=== PATIENT | female | born 1970 | race Caucasian/White ===

== ENCOUNTER 2017-01-09 20:37 | Observation (INO) | payer MEDICARE ==
[~2017-01-09] VITALS: Ht 152.4 cm; Wt 71.0 kg
[~2017-01-09 20:37] MED LIST: CLOB20TA PO; FLUO20CA19 PO; LEVE500T53 PO; LEVO112T4 PO; LEVO88TA4 PO; VIT D
[2017-01-09] MEDS ORDERED: DIVALPROEX 250 MG TAB.ER.24H PO ONE (21:30)
[2017-01-09 21:54] LABS: HEMOGLOBIN 15.1 g/dL (11.7-16.4)
[2017-01-09 22:03] LABS: BLOOD UREA NITROGEN 11 mg/dL (7-18)
[2017-01-09] MEDS ORDERED: DIVA250T4 PO (22:27)
[2017-01-09] MEDS ORDERED: LEVETIRACETAM 500 MG TABLET PO SCH (22:30)
[2017-01-09] MEDS ORDERED: ONDANSETRON ODT 4 MG PO PRN (22:30)
[2017-01-09] MEDS ORDERED: POLYETHYLENE GLYCOL 17 GM PACKET PO PRN (22:30)
[2017-01-09] MEDS ORDERED: DIVALPROEX 250 MG TABLET.DR PO SCH (22:30)
[2017-01-09] MEDS ORDERED: BISACODYL 10 MG SUPP PR PRN (22:30)
[2017-01-09] MEDS ORDERED: ACETAMINOPHEN 325 MG TABLET PO PRN (22:30)
[2017-01-09 22:43] VITALS: BP 138/81
[2017-01-10] MEDS ORDERED: FLUOXETINE 20 MG CAPSULE PO SCH (09:00)
[2017-01-10] MEDS ORDERED: SENNA/DOCUSATE TABLET PO SCH (09:00)
== END 2017-01-10 00:49 ==
LOC: ED 22:08 → EDIP 22:09 → ED 22:29 → 3E 22:39
DX: R45.851 Suicidal ideations (principal); F32.9 Major depressive disorder, single episode, unspecified; E03.9 Hypothyroidism, unspecified; G40.909 Epilepsy, unspecified, not intractable, without status epilepticus; Z91.5 Personal history of self-harm
CPT/HCPCS: 36415; 80048; 80164; 82040; 84439; 84443; 84703; 85025; 99285; G0378

== ENCOUNTER 2017-03-20 19:30 | Emergency (ER) | payer MEDICARE, MEDICAID ==
[~2017-03-20] VITALS: Ht 152.4 cm; Wt 70.5 kg
[~2017-03-20 19:30] MED LIST changes: +DIVA250T4 PO
[2017-03-20 19:45] VITALS: BP 147/90
== END 2017-03-20 21:37 | disposition home or self-care (01) ==
LOC: ED 21:00
DX: S93.491A Sprain of other ligament of right ankle, initial encounter (principal); S93.611A Sprain of tarsal ligament of right foot, initial encounter; W18.09XA Striking against other object with subsequent fall, initial encounter; Y93.89 Activity, other specified; Y92.009 Unspecified place in unspecified non-institutional (private) residence as the place of occurrence of the external cause; Y99.9 Unspecified external cause status
CPT/HCPCS: 99284

== ENCOUNTER 2017-04-19 01:43 | Emergency (ER) | payer MEDICARE, MEDICAID ==
[~2017-04-19] VITALS: Ht 152.4 cm; Wt 68.0 kg
[2017-04-19] MEDS ORDERED: MECLIZINE CHEWABLE 25 MG TAB ONE (02:16)
[2017-04-19] MEDS ORDERED: SODIUM CHLORIDE FLUSH 10ML SYR IVF ONE (02:30)
[2017-04-19] MEDS ORDERED: SODIUM CHLORIDE 0.9% 1,000ML IVBOLUS ONE (02:30)
[2017-04-19] MEDS ORDERED: MECLIZINE CHEWABLE 25 MG TAB PO ONE (02:30)
[2017-04-19 02:39] LABS: BLOOD UREA NITROGEN 9 mg/dL (7-18)
[2017-04-19] MEDS ORDERED: LEVO100T PO (02:57)
[2017-04-19 03:58] VITALS: BP 142/82
== END 2017-04-19 04:01 | disposition home or self-care (01) ==
LOC: ED 02:52
DX: R55 Syncope and collapse (principal); R42 Dizziness and giddiness
CPT/HCPCS: 36415; 71010; 80048; 82040; 84439; 84443; 85025; 93005; 96360; 99285; J7030

== ENCOUNTER 2017-05-15 15:55 | Emergency (ER) | payer MEDICARE, MEDICAID ==
[~2017-05-15] VITALS: Ht 152.4 cm; Wt 70.4 kg
[~2017-05-15 15:55] MED LIST changes: +LEVO100T PO
[2017-05-15] MEDS ORDERED: SODIUM CHLORIDE FLUSH 10ML SYR IVF ONE (16:00)
[2017-05-15] MEDS ORDERED: SODIUM CHLORIDE 0.9% 1,000ML IVBOLUS ONE (16:00)
[2017-05-15 16:31] LABS: ASPARTATE AMINO TRANSFERASE 15 U/L (15-37); BLOOD UREA NITROGEN 7 mg/dL (7-18)
[2017-05-15 16:50] LABS: PATH.CAST-FLAG NOT PRESENT; SPERM-FLAG NOT PRESENT; SRC-FLAG NOT PRESENT; XTAL-FLAG NOT PRESENT; YLC-FLAG NOT PRESENT
[2017-05-15] MEDS ORDERED: ONDANSETRON 2MG/ML, 2ML IVPush ONE (18:30)
[2017-05-15] MEDS ORDERED: MORPHINE SULFATE 4 MG/ML, 1ML IVPush ONE (18:30)
[2017-05-15] MEDS ORDERED: MORPHINE SULFATE 4 MG/ML, 1ML ONE (18:38)
[2017-05-15] MEDS ORDERED: ONDANSETRON 2MG/ML, 2ML ONE (18:38)
[2017-05-15] MEDS ORDERED: OMNIPAQUE 350 MG/ML, 100ML BOTTLE ONE (18:54)
[2017-05-15 19:12] VITALS: BP 130/71
[2017-05-15] MEDS ORDERED: DIPHENHYDRAMINE 50 MG/ML, 1ML ONE (19:29)
[2017-05-15] MEDS ORDERED: DIPHENHYDRAMINE 50 MG/ML, 1ML IVPush ONE (19:30)
== END 2017-05-15 19:54 | disposition home or self-care (01) ==
LOC: ED 19:00
DX: R10.33 Periumbilical pain (principal)
CPT/HCPCS: 36415; 74177; 80053; 81001; 83690; 84703; 85025; 87086; 96361; 96374; 96375; 99285; J1200; J2405; J7030; Q9967

== ENCOUNTER 2017-08-14 17:41 | Emergency (ER) | payer MEDICARE, MEDICAID ==
[~2017-08-14] VITALS: Ht 152.4 cm; Wt 70.0 kg
[2017-08-14] MEDS ORDERED: DIVA250T4 PO (18:00)
[2017-08-14 18:24] LABS: HEMATOCRIT 44.6 % (34.6-47.8); HEMOGLOBIN 15.2 g/dL (11.7-16.4); WHITE BLOOD COUNT 6.4 x10^3/uL (3.4-10)
[2017-08-14] MEDS ORDERED: SODIUM CHLORIDE 0.9% 1,000ML IVBOLUS ONE (18:30)
[2017-08-14] MEDS ORDERED: ONDANSETRON 2MG/ML, 2ML IVPush ONE (18:30)
[2017-08-14] MEDS ORDERED: HYDROmorphone 1 MG/ML, 1ML IVPush PRN (18:30)
[2017-08-14] MEDS ORDERED: HYDROmorphone 1 MG/ML, 1ML ONE (18:31)
[2017-08-14] MEDS ORDERED: ONDANSETRON 2MG/ML, 2ML ONE (18:31)
[2017-08-14 18:35] LABS: ASPARTATE AMINO TRANSFERASE 21 U/L (15-37); BLOOD UREA NITROGEN 8 mg/dL (7-18)
[2017-08-14 20:46] VITALS: BP 124/82
== END 2017-08-14 21:06 | disposition home or self-care (01) ==
LOC: ED 21:00
DX: S39.012A Strain of muscle, fascia and tendon of lower back, initial encounter (principal); E03.9 Hypothyroidism, unspecified; F32.9 Major depressive disorder, single episode, unspecified; X58.XXXA Exposure to other specified factors, initial encounter; Y93.89 Activity, other specified; Y92.89 Other specified places as the place of occurrence of the external cause; Y99.8 Other external cause status; Z88.0 Allergy status to penicillin
CPT/HCPCS: 36415; 74176; 80053; 81003; 83690; 85025; 96361; 96374; 96375; 99285; J1170; J2405; J7030

== ENCOUNTER 2017-08-14 21:48 | Emergency (ER) | payer MEDICARE, MEDICAID ==
[~2017-08-14] VITALS: Ht 152.4 cm; Wt 72.2 kg
[2017-08-14] MEDS ORDERED: ONDANSETRON ODT 4 MG ONE (22:12)
[2017-08-14] MEDS ORDERED: ONDANSETRON ODT 4 MG PO ONE (22:30)
[2017-08-14] MEDS ORDERED: PROMETHAZINE 25 MG/ML, 1ML ONE (23:06)
[2017-08-14] MEDS ORDERED: PROMETHAZINE 25 MG/ML, 1ML IM ONE (23:30)
[2017-08-14 23:42] VITALS: BP 150/88
== END 2017-08-14 23:51 | disposition home or self-care (01) ==
LOC: ED 23:45
DX: R11.2 Nausea with vomiting, unspecified (principal); G40.909 Epilepsy, unspecified, not intractable, without status epilepticus; F32.9 Major depressive disorder, single episode, unspecified
CPT/HCPCS: 96372; 99283; J2550; Q0162

== ENCOUNTER 2017-08-28 15:01 | Emergency (ER) | payer MEDICARE, MEDICAID ==
[~2017-08-28] VITALS: Ht 152.4 cm; Wt 70.0 kg
[2017-08-28] MEDS ORDERED: CLON0.5T PO (15:15)
[2017-08-28 16:04] VITALS: BP 125/82
[2017-08-31] MEDS ORDERED: LEVE500V12 PO (04:35)
== END 2017-08-28 16:24 | disposition home or self-care (01) ==
LOC: ED 15:23
DX: S80.01XA Contusion of right knee, initial encounter (principal); E03.9 Hypothyroidism, unspecified; F32.9 Major depressive disorder, single episode, unspecified; G40.909 Epilepsy, unspecified, not intractable, without status epilepticus; W19.XXXA Unspecified fall, initial encounter; Y93.89 Activity, other specified; Y92.488 Other paved roadways as the place of occurrence of the external cause; Y99.8 Other external cause status
CPT/HCPCS: 99284

== ENCOUNTER 2018-01-07 19:59 | Emergency (ER) | payer MEDICARE, MEDICAID ==
[~2018-01-07] VITALS: Ht 152.4 cm; Wt 69.4 kg
[~2018-01-07 19:59] MED LIST changes: +CLON0.5T PO; +LEVE500V12 PO
[2018-01-07 20:01] VITALS: BP 137/90
== END 2018-01-07 21:35 | disposition home or self-care (01) ==
LOC: ED 21:29
DX: J20.8 Acute bronchitis due to other specified organisms (principal); B97.89 Other viral agents as the cause of diseases classified elsewhere; S80.12XA Contusion of left lower leg, initial encounter; S80.11XA Contusion of right lower leg, initial encounter; E03.9 Hypothyroidism, unspecified; Y04.8XXA Assault by other bodily force, initial encounter; Y93.89 Activity, other specified; Y92.89 Other specified places as the place of occurrence of the external cause; Y99.9 Unspecified external cause status
CPT/HCPCS: 71046; 99284

== ENCOUNTER 2018-02-10 13:56 | Emergency (ER) | payer MEDICARE, MEDICAID ==
[~2018-02-10] VITALS: Ht 152.4 cm; Wt 67.0 kg
[2018-02-10 16:24] LABS: MICROSCOPIC AUTO
[2018-02-10 16:25] LABS: CULTURE INDICATED? YES
[2018-02-10 16:30] VITALS: BP 130/81
[2018-02-10 16:33] LABS: HCG UR SG 1.012 (1.003-1.030)
[2018-02-10 16:33] LABS: BASOPHILS # (AUTO) 0.02 x10^3/uL (0-0.1); BASOPHILS % (AUTO) 0 % (0-1); EOSINOPHILS # (AUTO) 0.05 x10^3/uL (0-0.4); EOSINOPHILS % (AUTO) 1 % (1-7); LYMPHOCYTES # (AUTO) 1.41 x10^3/uL (1-3.4); LYMPHOCYTES % (AUTO) 19 % (22-44); MD NO; MEAN CORPUSCULAR HEMOGLOBIN 30.8 pg (27.0-34.8); MEAN CORPUSCULAR HGB CONC 33.7 g/dL (32.4-35.8); MEAN CORPUSCULAR VOLUME 91.4 fL (80-100); MEAN PLATELET VOLUME 11.7 fL (7.4-10.4); MONOCYTES # (AUTO) 0.42 x10^3/uL (0.2-0.8); MONOCYTES % (AUTO) 6 % (2-9); NEUTROPHILS # (AUTO) 5.66 x10^3/uL (1.8-6.8); NEUTROPHILS % (AUTO) 75 % (42-75); PLATELET COUNT 157 x10^3/uL (130-400); RED BLOOD COUNT 5.06 x10^6/uL (3.82-5.3); RED CELL DISTRIBUTION WIDTH 13.1 % (9.6-15.2)
[2018-02-10 16:47] LABS: ANION GAP 8 mmol/L (5-15); CHLORIDE 107 mmol/L (98-107); CREATININE 0.72 mg/dL (0.55-1.02)
== END 2018-02-10 18:38 | disposition home or self-care (01) ==
LOC: ED 18:32
DX: T74.21XA Adult sexual abuse, confirmed, initial encounter (principal); E03.9 Hypothyroidism, unspecified; E55.9 Vitamin D deficiency, unspecified; F32.9 Major depressive disorder, single episode, unspecified; G40.909 Epilepsy, unspecified, not intractable, without status epilepticus
CPT/HCPCS: 36415; 80048; 81001; 81025; 85025; 87086; 87147; 87491; 87591; 99284

== ENCOUNTER 2018-03-04 18:00 | Emergency (ER) | payer MEDICARE, MEDICAID ==
[~2018-03-04] VITALS: Ht 152.4 cm; Wt 68.4 kg
[2018-03-04 18:14] VITALS: BP 136/93
== END 2018-03-04 19:06 | disposition home or self-care (01) ==
LOC: ED 19:00
DX: H93.11 Tinnitus, right ear (principal); E03.9 Hypothyroidism, unspecified; G40.909 Epilepsy, unspecified, not intractable, without status epilepticus; Z77.122 Contact with and (suspected) exposure to noise
CPT/HCPCS: 99281

== ENCOUNTER 2018-04-26 17:07 | Emergency (ER) | payer MEDICARE, MEDICAID ==
[2018-04-26 18:08] LABS: BASOPHILS # (AUTO) 0.01 x10^3/uL (0-0.1); BASOPHILS % (AUTO) 0 % (0-1); EOSINOPHILS # (AUTO) 0.04 x10^3/uL (0-0.4); EOSINOPHILS % (AUTO) 1 % (1-7); LYMPHOCYTES # (AUTO) 1.04 x10^3/uL (1-3.4); LYMPHOCYTES % (AUTO) 13 % (22-44); MD NO; MEAN CORPUSCULAR HEMOGLOBIN 30.9 pg (27.0-34.8); MEAN CORPUSCULAR HGB CONC 33.7 g/dL (32.4-35.8); MEAN CORPUSCULAR VOLUME 91.6 fL (80-100); MEAN PLATELET VOLUME 12.3 fL (7.4-10.4); MONOCYTES # (AUTO) 0.73 x10^3/uL (0.2-0.8); MONOCYTES % (AUTO) 9 % (2-9); NEUTROPHILS # (AUTO) 6.09 x10^3/uL (1.8-6.8); NEUTROPHILS % (AUTO) 77 % (42-75); PLATELET COUNT 138 x10^3/uL (130-400); RED BLOOD COUNT 4.81 x10^6/uL (3.82-5.3); RED CELL DISTRIBUTION WIDTH 13.6 % (9.6-15.2)
[2018-04-26 18:20] LABS: ALANINE AMINOTRANSFERASE 25 U/L (12-78); ALBUMIN 3.6 g/dL (3.4-5.0); ANION GAP 8 mmol/L (5-15); CALCIUM 8.6 mg/dL (8.5-10.1); CHLORIDE 109 mmol/L (98-107); CREATININE 0.69 mg/dL (0.55-1.02)
[2018-04-26 18:21] LABS: SALICYLATE LEVEL < 1.7 mg/dL (2.8-20.0)
[2018-04-26 18:25] LABS: ALKALINE PHOSPHATASE 52 U/L (45-117); BILIRUBIN,TOTAL 0.2 mg/dL (0.2-1.0)
[2018-04-26 18:31] LABS: ACETAMINOPHEN < 2 mcg/mL (10-30)
[2018-04-26 20:00] LABS: AMPHETAMINE SCREEN, URINE Negative (Negative); BARBITURATE SCREEN, URINE Negative (Negative); BENZODIAZEPINE SCREEN, URINE Negative (Negative); CANNABINOID SCREEN, URINE Negative (Negative); COCAINE SCREEN, URINE Negative (Negative); METHADONE SCREEN, URINE Negative (Negative); OPIATE SCREEN, URINE Negative (Negative)
[2018-04-26] MEDS ORDERED: LORazepam 2 MG/ML, 1ML ONE (21:07)
[2018-04-26] MEDS ORDERED: LORazepam 1MG TABLET ONE (22:41)
[2018-04-26] MEDS ORDERED: LORazepam 1MG TABLET PO ONE (23:00)
[2018-04-27 01:50] VITALS: BP 147/90
== END 2018-04-27 01:52 | disposition home or self-care (01) ==
LOC: ED 19:28
DX: F41.1 Generalized anxiety disorder (principal); Z79.899 Other long term (current) drug therapy
CPT/HCPCS: 36415; 80053; 80307; 80329; 84703; 85025; 99284; G0480

== ENCOUNTER → 2018-05-22 | Outpatient (CLI) | payer MEDICARE, MEDICAID ==
[2018-05-22 12:15] LABS: BASOPHILS # (AUTO) 0.03 x10^3/uL (0-0.1); BASOPHILS % (AUTO) 1 % (0-1); EOSINOPHILS # (AUTO) 0.11 x10^3/uL (0-0.4); EOSINOPHILS % (AUTO) 2 % (1-7); LYMPHOCYTES # (AUTO) 1.17 x10^3/uL (1-3.4); LYMPHOCYTES % (AUTO) 18 % (22-44); MD NO; MEAN CORPUSCULAR HGB CONC 34.1 g/dL (32.4-35.8); MEAN PLATELET VOLUME 11.4 fL (7.4-10.4); MONOCYTES # (AUTO) 0.47 x10^3/uL (0.2-0.8); MONOCYTES % (AUTO) 8 % (2-9); NEUTROPHILS # (AUTO) 4.54 x10^3/uL (1.8-6.8); NEUTROPHILS % (AUTO) 72 % (42-75); PLATELET COUNT 132 x10^3/uL (130-400); RED BLOOD COUNT 4.99 x10^6/uL (3.82-5.3); RED CELL DISTRIBUTION WIDTH 13.9 % (9.6-15.2)
[2018-05-22 12:26] LABS: CHLORIDE 109 mmol/L (98-107)
[2018-05-22 12:46] LABS: ALANINE AMINOTRANSFERASE 48 U/L (12-78); ALBUMIN 3.7 g/dL (3.4-5.0); ALKALINE PHOSPHATASE 49 U/L (45-117); ANION GAP 7 mmol/L (5-15); BILIRUBIN,TOTAL 0.5 mg/dL (0.2-1.0); CALCIUM 8.5 mg/dL (8.5-10.1); CHOLESTEROL, TOTAL 189 mg/dL (140-239); CREATININE 0.71 mg/dL (0.55-1.02); HDL CHOL % 25 % (28-40); HDL CHOLESTEROL (DIRECT) 47 mg/dL (40-60); LDL CHOLESTEROL,CALCULATED 119 mg/dL (54-169); LDL/HDL RATIO 2.5 (0.5-3.0); TOTAL PROTEIN 7.5 g/dL (6.4-8.2); TRIGLYCERIDES 115 mg/dL (50-200); VLDL CHOLESTEROL 23 mg/dL (0-25)
[2018-05-22 13:07] LABS: FREE T4 (FREE THYROXINE) 1.31 ng/dL (0.76-1.46)
== END | disposition home or self-care (01) ==
LOC: LAB 11:43
PROVIDERS: ATTEND Physician Assistant Medical
DX: E03.9 Hypothyroidism, unspecified (principal); F32.9 Major depressive disorder, single episode, unspecified
CPT/HCPCS: 36415; 80053; 80061; 84439; 84443; 85025

== ENCOUNTER 2018-05-23 14:58 | Emergency (ER) | payer MEDICARE, MEDICAID ==
[~2018-05-23] VITALS: Ht 152.4 cm; Wt 65.8 kg
[2018-05-23 15:03] VITALS: BP 129/83
== END 2018-05-23 15:47 | disposition home or self-care (01) ==
LOC: ED 15:35
DX: H66.001 Acute suppurative otitis media without spontaneous rupture of ear drum, right ear (principal); E03.9 Hypothyroidism, unspecified
CPT/HCPCS: 99283

== ENCOUNTER 2018-06-26 15:17 | Emergency (ER) | payer MEDICARE, MEDICAID ==
[~2018-06-26] VITALS: Ht 152.4 cm; Wt 65.2 kg
[~2018-06-26 15:17] MED LIST changes: -LEVE500V12 PO; +[UNRECOGNIZED DRUG - CODE] PO
[2018-06-26 15:20] VITALS: BP 131/85
[2018-06-26] MEDS ORDERED: DEXAMETHASONE 4 MG/ML, 5ML ONE (15:40)
[2018-06-26] MEDS ORDERED: DEXAMETHASONE 4 MG/ML, 1ML PO ONE (16:00)
== END 2018-06-26 15:49 | disposition home or self-care (01) ==
LOC: ED 15:43
DX: K12.2 Cellulitis and abscess of mouth (principal); Z86.39 Personal history of other endocrine, nutritional and metabolic disease
CPT/HCPCS: 99283; J1100

== ENCOUNTER 2018-07-09 20:03 | Emergency (ER) | payer MEDICARE, MEDICAID ==
[~2018-07-09] VITALS: Ht 152.4 cm; Wt 61.0 kg
[2018-07-09] MEDS ORDERED: AMOX1TAB64 PO (20:34)
[2018-07-09] MEDS ORDERED: LEVE500T53 PO ×2 (20:34)
[2018-07-09] MEDS ORDERED: LORazepam 1MG TABLET ONE (21:17)
[2018-07-09] MEDS ORDERED: LORazepam 2 MG/ML, 1ML IVPush ONE (21:30)
[2018-07-09] MEDS ORDERED: SODIUM CHLORIDE FLUSH 10ML SYR IVF ONE (21:30)
[2018-07-09] MEDS ORDERED: SODIUM CHLORIDE 0.9% 1,000ML IVBOLUS ONE (21:30)
[2018-07-09] MEDS ORDERED: LORazepam 2 MG/ML, 1ML ONE (21:32)
[2018-07-09] MEDS ORDERED: LORazepam 1MG TABLET PO ONE (22:00)
[2018-07-09] MEDS ORDERED: LEVETIRACETAM 1,000 MG in SODIUM CHLORIDE 0.9% 100 ML IV ONE (22:00)
[2018-07-09 22:40] LABS: ALBUMIN 3.4 g/dL (3.4-5.0); ANION GAP 6 mmol/L (5-15); BASOPHILS # (AUTO) 0.02 x10^3/uL (0-0.1); BASOPHILS % (AUTO) 0 % (0-1); CALCIUM 8.5 mg/dL (8.5-10.1); CHLORIDE 111 mmol/L (98-107); EOSINOPHILS # (AUTO) 0.14 x10^3/uL (0-0.4); EOSINOPHILS % (AUTO) 2 % (1-7); LYMPHOCYTES # (AUTO) 1.55 x10^3/uL (1-3.4); LYMPHOCYTES % (AUTO) 17 % (22-44); MD NO; MEAN CORPUSCULAR HEMOGLOBIN 31.3 pg (27.0-34.8); MEAN CORPUSCULAR VOLUME 91.9 fL (80-100); MEAN PLATELET VOLUME 11.4 fL (7.4-10.4); MONOCYTES # (AUTO) 0.61 x10^3/uL (0.2-0.8); MONOCYTES % (AUTO) 7 % (2-9); NEUTROPHILS # (AUTO) 7.09 x10^3/uL (1.8-6.8); NEUTROPHILS % (AUTO) 75 % (42-75); PLATELET COUNT 171 x10^3/uL (130-400); RED BLOOD COUNT 4.87 x10^6/uL (3.82-5.3); RED CELL DISTRIBUTION WIDTH 13.9 % (9.6-15.2)
[2018-07-09 22:44] LABS: ALANINE AMINOTRANSFERASE 206 U/L (12-78); ALKALINE PHOSPHATASE 57 U/L (45-117); BILIRUBIN,TOTAL 0.3 mg/dL (0.2-1.0); CREATININE 0.68 mg/dL (0.55-1.02)
[2018-07-09 23:51] VITALS: BP 144/97
== END 2018-07-09 23:54 | disposition home or self-care (01) ==
LOC: ED 22:20
DX: G40.419 Other generalized epilepsy and epileptic syndromes, intractable, without status epilepticus (principal); E03.9 Hypothyroidism, unspecified; F32.9 Major depressive disorder, single episode, unspecified; F41.1 Generalized anxiety disorder
CPT/HCPCS: 36415; 71045; 80053; 80307; 85025; 93005; 96365; 96375; 99285; J1953; J2060; J7030

== ENCOUNTER 2018-07-31 17:57 | Emergency (ER) | payer MEDICARE, MEDICAID ==
[~2018-07-31] VITALS: Ht 152.4 cm; Wt 97.4 kg
[~2018-07-31 17:57] MED LIST changes: +AMOX1TAB64 PO
[2018-07-31] MEDS ORDERED: MAALOX/HYOSCYAMINE/LIDOCAINE 45 ML BTL PO ONE (19:00)
[2018-07-31] MEDS ORDERED: FAMOTIDINE 20 MG TABLET PO ONE (19:00)
[2018-07-31] MEDS ORDERED: FAMOTIDINE 20 MG TABLET ONE (19:05)
[2018-07-31] MEDS ORDERED: MAALOX/HYOSCYAMINE/LIDOCAINE 45 ML BTL ONE (19:05)
[2018-07-31 19:22] LABS: CULTURE INDICATED? YES; MICROSCOPIC INDICATED
[2018-07-31 19:23] LABS: BASOPHILS # (AUTO) 0.02 x10^3/uL (0-0.1); BASOPHILS % (AUTO) 0 % (0-1); EOSINOPHILS # (AUTO) 0.12 x10^3/uL (0-0.4); EOSINOPHILS % (AUTO) 2 % (1-7); LYMPHOCYTES # (AUTO) 2.04 x10^3/uL (1-3.4); LYMPHOCYTES % (AUTO) 24 % (22-44); MD NO; MEAN CORPUSCULAR HEMOGLOBIN 31.2 pg (27.0-34.8); MEAN CORPUSCULAR HGB CONC 34.1 g/dL (32.4-35.8); MEAN CORPUSCULAR VOLUME 91.6 fL (80-100); MEAN PLATELET VOLUME 11.7 fL (7.4-10.4); MONOCYTES # (AUTO) 0.69 x10^3/uL (0.2-0.8); MONOCYTES % (AUTO) 8 % (2-9); NEUTROPHILS # (AUTO) 5.48 x10^3/uL (1.8-6.8); NEUTROPHILS % (AUTO) 66 % (42-75); PLATELET COUNT 146 x10^3/uL (130-400); RED BLOOD COUNT 4.84 x10^6/uL (3.82-5.3); RED CELL DISTRIBUTION WIDTH 13.9 % (9.6-15.2)
[2018-07-31 19:24] LABS: ALANINE AMINOTRANSFERASE 79 U/L (12-78); ALBUMIN 3.6 g/dL (3.4-5.0); ANION GAP 7 mmol/L (5-15); CALCIUM 9.1 mg/dL (8.5-10.1); CHLORIDE 108 mmol/L (98-107); CREATININE 0.58 mg/dL (0.55-1.02)
[2018-07-31 19:27] LABS: ALKALINE PHOSPHATASE 50 U/L (45-117); BILIRUBIN,TOTAL 0.2 mg/dL (0.2-1.0); TOTAL PROTEIN 7.2 g/dL (6.4-8.2)
[2018-07-31 20:01] VITALS: BP 134/86
== END 2018-07-31 20:06 | disposition home or self-care (01) ==
LOC: ED 19:25
DX: K29.00 Acute gastritis without bleeding (principal); G40.909 Epilepsy, unspecified, not intractable, without status epilepticus; E07.9 Disorder of thyroid, unspecified; Z88.0 Allergy status to penicillin
CPT/HCPCS: 36415; 80053; 81001; 83690; 85025; 87086; 99284

== ENCOUNTER 2018-08-21 14:41 | Emergency (ER) | payer MEDICARE, MEDICAID ==
[~2018-08-21] VITALS: Ht 160 cm; Wt 56.0 kg
[2018-08-21] MEDS ORDERED: ACETAMINOPHEN 325 MG TABLET PO ONE (16:00)
[2018-08-21] MEDS ORDERED: ACETAMINOPHEN 325 MG TABLET ONE (16:05)
[2018-08-21 16:07] VITALS: BP 151/99
[2018-08-21] MEDS ORDERED: BACITRACIN ZINC OINT 500U/GM, 0.9 GM ONE (16:51)
== END 2018-08-21 17:12 | disposition home or self-care (01) ==
LOC: ED 15:13
DX: S00.33XA Contusion of nose, initial encounter (principal); S60.011A Contusion of right thumb without damage to nail, initial encounter; R04.0 Epistaxis; E03.9 Hypothyroidism, unspecified; G40.909 Epilepsy, unspecified, not intractable, without status epilepticus; F32.9 Major depressive disorder, single episode, unspecified; Z88.0 Allergy status to penicillin; W51.XXXA Accidental striking against or bumped into by another person, initial encounter; Y93.89 Activity, other specified; Y99.8 Other external cause status; Y92.89 Other specified places as the place of occurrence of the external cause
CPT/HCPCS: 70160; 99284

== ENCOUNTER 2018-09-17 23:43 | Emergency (ER) | payer MEDICARE, MEDICAID ==
[~2018-09-17] VITALS: Ht 152.4 cm; Wt 66.0 kg
[2018-09-17] MEDS ORDERED: DICYCLOMINE 10 MG/ML, 2ML ONE (23:59)
[2018-09-17] MEDS ORDERED: PROMETHAZINE 25 MG/ML, 1ML ONE (23:59)
[2018-09-18] MEDS ORDERED: DICYCLOMINE 10 MG/ML, 2ML IM ONE
[2018-09-18] MEDS ORDERED: PROMETHAZINE 25 MG/ML, 1ML IM ONE
[2018-09-18 00:51] VITALS: BP 137/91
== END 2018-09-18 00:53 | disposition home or self-care (01) ==
LOC: ED 09-18 00:01
DX: K52.9 Noninfective gastroenteritis and colitis, unspecified (principal); F41.1 Generalized anxiety disorder; Z86.39 Personal history of other endocrine, nutritional and metabolic disease; G40.909 Epilepsy, unspecified, not intractable, without status epilepticus; Z88.0 Allergy status to penicillin
CPT/HCPCS: 96372; 99283; J0500; J2550

== ENCOUNTER 2018-11-15 18:59 | Emergency (ER) | payer OTHER, MEDICAID ==
[~2018-11-15] VITALS: Ht 152.4 cm; Wt 66.8 kg
[2018-11-15 19:05] VITALS: BP 147/89
== END 2018-11-15 20:01 | disposition home or self-care (01) ==
LOC: ED 19:25
DX: G40.89 Other seizures (principal); E03.9 Hypothyroidism, unspecified; F32.9 Major depressive disorder, single episode, unspecified
CPT/HCPCS: 99283

== ENCOUNTER 2018-11-27 17:04 | Emergency (ER) | payer OTHER, MEDICAID ==
[~2018-11-27] VITALS: Ht 152.4 cm; Wt 66.1 kg
[2018-11-27 18:30] VITALS: BP 156/80
--- NOTE | 2018-11-27 18:30 | NUR ---
Patient/Caregiver given discharge instructions and they have confirmed that they understand the instructions. Patient ambulatory with steady gait.
== END 2018-11-27 18:33 | disposition home or self-care (01) ==
LOC: ED 18:24
DX: J30.81 Allergic rhinitis due to animal (cat) (dog) hair and dander (principal); J01.00 Acute maxillary sinusitis, unspecified; F41.1 Generalized anxiety disorder; F32.9 Major depressive disorder, single episode, unspecified; G40.909 Epilepsy, unspecified, not intractable, without status epilepticus; E03.9 Hypothyroidism, unspecified
CPT/HCPCS: 99283

== ENCOUNTER 2018-12-01 06:58 | Emergency (ER) | payer OTHER, MEDICAID ==
[~2018-12-01] VITALS: Ht 152.4 cm; Wt 67.0 kg
[2018-12-01] MEDS ORDERED: LORazepam 2 MG/ML, 1ML IM STA (07:06)
[2018-12-01] MEDS ORDERED: LORazepam 2 MG/ML, 1ML ONE (07:12)
[2018-12-01 07:26] LABS: BASOPHILS # (AUTO) 0.02 x10^3/uL (0-0.1); BASOPHILS % (AUTO) 0 % (0-1); EOSINOPHILS # (AUTO) 0.06 x10^3/uL (0-0.4); EOSINOPHILS % (AUTO) 1 % (1-7); LYMPHOCYTES # (AUTO) 1.16 x10^3/uL (1-3.4); LYMPHOCYTES % (AUTO) 20 % (22-44); MD NO; MEAN CORPUSCULAR HEMOGLOBIN 30.4 pg (27.0-34.8); MEAN CORPUSCULAR HGB CONC 33.5 g/dL (32.4-35.8); MEAN CORPUSCULAR VOLUME 90.9 fL (80-100); MEAN PLATELET VOLUME 11.5 fL (7.4-10.4); MONOCYTES # (AUTO) 0.47 x10^3/uL (0.2-0.8); MONOCYTES % (AUTO) 8 % (2-9); NEUTROPHILS # (AUTO) 4.13 x10^3/uL (1.8-6.8); NEUTROPHILS % (AUTO) 71 % (42-75); PLATELET COUNT 144 x10^3/uL (130-400); RED BLOOD COUNT 5.05 x10^6/uL (3.82-5.3); RED CELL DISTRIBUTION WIDTH 13.6 % (9.6-15.2)
[2018-12-01 07:33] LABS: ALBUMIN 3.6 g/dL (3.4-5.0); ANION GAP 7 mmol/L (5-15); CALCIUM 9.1 mg/dL (8.5-10.1); CHLORIDE 108 mmol/L (98-107)
[2018-12-01] MEDS ORDERED: MAALOX/HYOSCYAMINE/LIDOCAINE 45 ML BTL ONE (07:51)
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
--- NOTE | 2018-12-01 08:08 | NUR ---
FREDDY RN NOTE: PATIENT URINATED ON SELF. SHE HAS BROUGHT EXTRA CLOTHES. BOYFRIEND AT
[2018-12-01] MEDS ORDERED: MAALOX/HYOSCYAMINE/LIDOCAINE 45 ML BTL PO ONE (08:30)
[2018-12-01 08:38] VITALS: BP 168/72
== END 2018-12-01 08:41 | disposition home or self-care (01) ==
LOC: ED 08:08
DX: G40.309 Generalized idiopathic epilepsy and epileptic syndromes, not intractable, without status epilepticus (principal); R10.13 Epigastric pain; E07.9 Disorder of thyroid, unspecified; F32.9 Major depressive disorder, single episode, unspecified
CPT/HCPCS: 36415; 80048; 82040; 85025; 99283

== ENCOUNTER 2018-12-08 14:43 | Emergency (ER) | payer OTHER, MEDICAID ==
[~2018-12-08] VITALS: Ht 152.4 cm; Wt 64.9 kg
[2018-12-08 15:03] VITALS: BP 125/83
--- NOTE | 2018-12-08 15:11 | NUR ---
PT AMBULATORY TO [facility] FROM TRIAGE WITH STEADY GAIT. JJ PA AT BEDSIDE AT BEDSIDE FOR EVALUATION. CALL LIGHT IN REACH. FALL PRECAUTIONS IN PLACE. A&OX4.NAD NOTED.
== END 2018-12-08 15:44 | disposition home or self-care (01) ==
LOC: ED 15:27
DX: J34.0 Abscess, furuncle and carbuncle of nose (principal); G40.909 Epilepsy, unspecified, not intractable, without status epilepticus; F32.9 Major depressive disorder, single episode, unspecified; F41.1 Generalized anxiety disorder
CPT/HCPCS: 99283

== ENCOUNTER 2018-12-19 13:51 | Emergency (ER) | payer OTHER, MEDICAID ==
[~2018-12-19] VITALS: Ht 152.4 cm; Wt 65.0 kg
[2018-12-19 13:58] VITALS: BP 132/82
--- NOTE | 2018-12-19 15:19 | NUR ---
DC EDUCATION PROVIDED, PT DEMONSTRATES UNDERSTANDING. PT AMBULATED STEADILY TO DC WITH RN
== END 2018-12-19 15:20 | disposition home or self-care (01) ==
LOC: ED 14:40
DX: S93.622A Sprain of tarsometatarsal ligament of left foot, initial encounter (principal); F32.9 Major depressive disorder, single episode, unspecified; G43.909 Migraine, unspecified, not intractable, without status migrainosus; E07.9 Disorder of thyroid, unspecified; Z98.51 Tubal ligation status; Z88.0 Allergy status to penicillin; X58.XXXA Exposure to other specified factors, initial encounter; Y93.89 Activity, other specified; Y92.89 Other specified places as the place of occurrence of the external cause; Y99.8 Other external cause status
CPT/HCPCS: 99283

== ENCOUNTER 2019-01-15 16:47 | Emergency (ER) | payer OTHER, MEDICAID ==
[~2019-01-15] VITALS: Ht 152.4 cm; Wt 59.2 kg
--- NOTE | 2019-01-15 17:00 | NUR ---
I GOT PT INTO A GOWN, DID VS, PERFORMED BREATHALYZER, AND OBTAINED URINE SAMPLE FROM PT. PT IN [facility] WITH ANTI-FALL SOCKS AND WARM BLANKETS WITH RAILS UP. PT'S 2 BELONGING BAGS (1 OF MEDS, 1 OF CLOTHES) AND HER SUITCASE WERE LABELED AND LOCKED IN PSYCH LOCKER FOR SAFE KEEPING. RN AT BEDSIDE.
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
--- NOTE | 2019-01-15 17:05 | NUR ---
Pt changed into gown, pt understands procedure for psych hold. All belongings placed in bags and in locked cabinet, including pt's bag of medications. Garage doors down for pt safety. Sitter outside of room for pt safety.
[2019-01-15] MEDS ORDERED: prilosec PO (17:14)
[2019-01-15] MEDS ORDERED: RANI150T4 PO (17:14)
[2019-01-15] MEDS ORDERED: LEVO112T4 PO (17:14)
--- NOTE | 2019-01-15 17:34 | NUR ---
Urine sample collected and sent to lab.
--- NOTE | 2019-01-15 18:00 | NUR ---
Dr. Mcdowell at bedside to evaluate pt.
--- NOTE | 2019-01-15 18:25 | NUR ---
Pt provided meal tray, per request. Labs drawn. EKG complete. Sitter remains outside of room for patient safety.
[2019-01-15 18:37] LABS: BASOPHILS # (AUTO) 0.02 x10^3/uL (0-0.1); BASOPHILS % (AUTO) 0 % (0-1); EOSINOPHILS # (AUTO) 0.13 x10^3/uL (0-0.4); EOSINOPHILS % (AUTO) 2 % (1-7); LYMPHOCYTES # (AUTO) 1.45 x10^3/uL (1-3.4); LYMPHOCYTES % (AUTO) 21 % (22-44); MD NO; MEAN CORPUSCULAR HEMOGLOBIN 30.9 pg (27.0-34.8); MEAN CORPUSCULAR HGB CONC 34.2 g/dL (32.4-35.8); MEAN CORPUSCULAR VOLUME 90.3 fL (80-100); MEAN PLATELET VOLUME 11.2 fL (7.4-10.4); MONOCYTES # (AUTO) 0.54 x10^3/uL (0.2-0.8); MONOCYTES % (AUTO) 8 % (2-9); NEUTROPHILS # (AUTO) 4.74 x10^3/uL (1.8-6.8); NEUTROPHILS % (AUTO) 69 % (42-75); PLATELET COUNT 152 x10^3/uL (130-400); RED BLOOD COUNT 4.87 x10^6/uL (3.82-5.3); RED CELL DISTRIBUTION WIDTH 13.7 % (9.6-15.2)
[2019-01-15 18:38] LABS: AMPHETAMINE SCREEN, URINE Negative (Negative); BARBITURATE SCREEN, URINE Negative (Negative); BENZODIAZEPINE SCREEN, URINE Negative (Negative); CANNABINOID SCREEN, URINE Negative (Negative); COCAINE SCREEN, URINE Negative (Negative); METHADONE SCREEN, URINE Negative (Negative); OPIATE SCREEN, URINE Negative (Negative)
[2019-01-15 18:41] LABS: ALBUMIN 3.9 g/dL (3.4-5.0); ANION GAP 5 mmol/L (5-15); CALCIUM 8.9 mg/dL (8.5-10.1); CHLORIDE 110 mmol/L (98-107)
[2019-01-15 18:48] LABS: ALANINE AMINOTRANSFERASE 43 U/L (12-78); ALKALINE PHOSPHATASE 56 U/L (45-117); BILIRUBIN,TOTAL 0.5 mg/dL (0.2-1.0); CREATININE 0.67 mg/dL (0.55-1.02); TOTAL PROTEIN 7.3 g/dL (6.4-8.2)
[2019-01-15 18:49] LABS: SALICYLATE LEVEL < 1.7 mg/dL (2.8-20.0)
[2019-01-15 18:50] LABS: ACETAMINOPHEN < 2 mcg/mL (10-30)
--- NOTE | 2019-01-15 19:13 | NUR ---
MARTA RN: TELEPSYCH PAGED
[2019-01-15 19:19] LABS: FREE T4 (FREE THYROXINE) 1.26 ng/dL (0.76-1.46)
--- NOTE | 2019-01-15 19:57 | NUR ---
Pt calling RN into room stating, "if I don't get my seizure medicine at 8 o'clock I will have a seizure." notified, new orders placed.
[2019-01-15] MEDS ORDERED: LEVETIRACETAM 500 MG TABLET ONE (19:58)
--- NOTE | 2019-01-15 20:03 | NUR ---
Pt medicated per MAR.
[2019-01-15] MEDS ORDERED: LEVETIRACETAM 500 MG TABLET PO SCH (21:00)
--- NOTE | 2019-01-15 21:14 | NUR ---
Pt standing in doorway, speaking with sitter and every person walking by, requesting to know when the psychiatrist is going to speak with her. This RN in to explain to patient that we do not know when the psychiastrist is going to be able to speak with her as it is a remote service. Pt does not express understanding of this and states, "If I don't speak with someone soon I'm going to discharge myself." Pt was reminded that she is making statements that she has a plan to harm her boyfriend and that makes it unsafe for her to leave. Pt responded, "That's right I'm going to kill my boyfriend, and I'm ready to leave." Pt was instructed to have a seat back on the gurney and to wait for telepsych. Pt remains in doorway.
--- NOTE | 2019-01-15 22:12 | NUR ---
Pt now laying back down on gurney, pt still not agreeable to the plan of waiting for telepsych. Garage doors remain down. Sitter remains outside of room for pt safety.
--- NOTE | 2019-01-15 22:22 | NUR ---
Telephone report given to JANETH CARMEN.
--- NOTE | 2019-01-15 22:38 | NUR ---
Pt speaking with SOC .
--- NOTE | 2019-01-15 23:45 | NUR ---
Pt provided crackers, per request.
[2019-01-16 00:18] VITALS: BP 142/90
== END 2019-01-16 00:19 | disposition home or self-care (01) ==
LOC: ED 18:58
DX: F43.0 Acute stress reaction (principal); E03.9 Hypothyroidism, unspecified; G40.909 Epilepsy, unspecified, not intractable, without status epilepticus; E07.9 Disorder of thyroid, unspecified
CPT/HCPCS: 36415; 80053; 80307; 80329; 84439; 84443; 84481; 84703; 85025; 93005; 99284; G0480

== ENCOUNTER 2019-02-06 20:43 | Emergency (ER) | payer OTHER, MEDICAID ==
[~2019-02-06] VITALS: Ht 152.4 cm; Wt 62.0 kg
[~2019-02-06 20:43] MED LIST changes: +RANI150T4 PO; +prilosec PO
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
[2019-02-06 21:38] LABS: BASOPHILS # (AUTO) 0.02 x10^3/uL (0-0.1); BASOPHILS % (AUTO) 0 % (0-1); EOSINOPHILS # (AUTO) 0.04 x10^3/uL (0-0.4); EOSINOPHILS % (AUTO) 1 % (1-7); LYMPHOCYTES # (AUTO) 1.63 x10^3/uL (1-3.4); LYMPHOCYTES % (AUTO) 28 % (22-44); MD NO; MEAN CORPUSCULAR HGB CONC 34.2 g/dL (32.4-35.8); MEAN CORPUSCULAR VOLUME 90.5 fL (80-100); MONOCYTES # (AUTO) 0.51 x10^3/uL (0.2-0.8); MONOCYTES % (AUTO) 9 % (2-9); NEUTROPHILS % (AUTO) 62 % (42-75); PLATELET COUNT 186 x10^3/uL (130-400); RED BLOOD COUNT 5.09 x10^6/uL (3.82-5.3); RED CELL DISTRIBUTION WIDTH 13.6 % (9.6-15.2)
[2019-02-06 21:52] LABS: ANION GAP 7 mmol/L (5-15); CALCIUM 8.8 mg/dL (8.5-10.1); CHLORIDE 110 mmol/L (98-107); CREATININE 0.68 mg/dL (0.55-1.02)
--- NOTE | 2019-02-06 22:02 | NUR ---
PT WATCHING TV IN ROOM. NO ACUTE DISTRESS NOTED. VS STABLE CALL LIGHT IN PLACE. WILL CONTINUE TO MONITOR.
[2019-02-06 22:28] VITALS: BP 129/80
--- NOTE | 2019-02-06 22:28 | NUR ---
DR ELLIOTT HAS UPDATED PATIENT. PATIENT READY FOR DISCHARGE.
== END 2019-02-06 22:44 | disposition home or self-care (01) ==
LOC: ED 21:47
DX: F43.0 Acute stress reaction (principal); G25.2 Other specified forms of tremor; E03.9 Hypothyroidism, unspecified; G40.909 Epilepsy, unspecified, not intractable, without status epilepticus; F41.1 Generalized anxiety disorder
CPT/HCPCS: 36415; 80048; 82040; 85025; 99284; Q0177

== ENCOUNTER 2019-03-24 20:13 | Emergency (ER) | payer OTHER ==
[~2019-03-24] VITALS: Ht 152.4 cm; Wt 68.0 kg
[2019-03-24] MEDS ORDERED: LOPERAMIDE 2 MG CAPSULE PO ONE (20:30)
[2019-03-24] MEDS ORDERED: DEPAKOTE PO (20:31)
--- NOTE | 2019-03-24 20:31 | NUR ---
DIARRHEA FOR 10 DAYS AND FEELING WEEK TODAY. HAD A SEIZURE TODAY AND YESTERDAY. STATES SHE HAS BEEN TAKING HER SEIZURE MEDS
[2019-03-24] MEDS ORDERED: LOPERAMIDE 2 MG CAPSULE ONE (20:39)
--- NOTE | 2019-03-24 20:43 | NUR ---
SEIZURE PADS IN PLACE. MEDICATED PER ORDERS
[2019-03-24 20:57] LABS: BASOPHILS # (AUTO) 0.03 x10^3/uL (0-0.1); BASOPHILS % (AUTO) 0 % (0-1); EOSINOPHILS # (AUTO) 0.06 x10^3/uL (0-0.4); EOSINOPHILS % (AUTO) 1 % (1-7); LYMPHOCYTES # (AUTO) 1.29 x10^3/uL (1-3.4); LYMPHOCYTES % (AUTO) 18 % (22-44); MD NO; MEAN CORPUSCULAR HEMOGLOBIN 31.1 pg (27.0-34.8); MEAN CORPUSCULAR HGB CONC 33.7 g/dL (32.4-35.8); MEAN CORPUSCULAR VOLUME 92.2 fL (80-100); MEAN PLATELET VOLUME 11.2 fL (7.4-10.4); MONOCYTES # (AUTO) 0.62 x10^3/uL (0.2-0.8); MONOCYTES % (AUTO) 9 % (2-9); NEUTROPHILS # (AUTO) 5.22 x10^3/uL (1.8-6.8); NEUTROPHILS % (AUTO) 72 % (42-75); PLATELET COUNT 169 x10^3/uL (130-400); RED BLOOD COUNT 4.97 x10^6/uL (3.82-5.3); RED CELL DISTRIBUTION WIDTH 13.2 % (9.6-15.2)
[2019-03-24 21:04] LABS: ALBUMIN 3.8 g/dL (3.4-5.0); ANION GAP 6 mmol/L (5-15); CHLORIDE 109 mmol/L (98-107); CREATININE 0.69 mg/dL (0.55-1.02)
[2019-03-24] MEDS ORDERED: DIVALPROEX 500 MG TAB.ER.24H PO ONE (21:30)
[2019-03-24] MEDS ORDERED: DIVALPROEX 500 MG TAB.ER.24H ONE (21:40)
[2019-03-24 21:46] VITALS: BP 143/95
== END 2019-03-24 22:05 | disposition home or self-care (01) ==
LOC: ED 20:52
DX: G40.909 Epilepsy, unspecified, not intractable, without status epilepticus (principal); R19.7 Diarrhea, unspecified; R89.2 Abnormal level of other drugs, medicaments and biological substances in specimens from other organs, systems and tissues; E03.9 Hypothyroidism, unspecified; F32.9 Major depressive disorder, single episode, unspecified
CPT/HCPCS: 36415; 80048; 80164; 82040; 85025; 93005; 99284

== ENCOUNTER 2019-10-25 18:07 | Emergency (ER) | payer MEDICARE, MEDICAID ==
[~2019-10-25] VITALS: Ht 152.4 cm; Wt 69.8 kg
[~2019-10-25 18:07] MED LIST changes: +DEPAKOTE PO
[2019-10-25] MEDS ORDERED: SODIUM CHLORIDE FLUSH 10ML SYR IVF ONE (19:00)
[2019-10-25 19:21] LABS: BASOPHILS # (AUTO) 0.02 x10^3/uL (0-0.1); BASOPHILS % (AUTO) 0 % (0-1); EOSINOPHILS # (AUTO) 0.29 x10^3/uL (0-0.4); EOSINOPHILS % (AUTO) 4 % (1-7); LYMPHOCYTES # (AUTO) 1.39 x10^3/uL (1-3.4); LYMPHOCYTES % (AUTO) 20 % (22-44); MD NO; MEAN CORPUSCULAR HEMOGLOBIN 31.1 pg (27.0-34.8); MEAN CORPUSCULAR HGB CONC 33.7 g/dL (32.4-35.8); MEAN CORPUSCULAR VOLUME 92.3 fL (80-100); MEAN PLATELET VOLUME 11.1 fL (7.4-10.4); MONOCYTES % (AUTO) 7 % (2-9); NEUTROPHILS # (AUTO) 4.65 x10^3/uL (1.8-6.8); NEUTROPHILS % (AUTO) 68 % (42-75); PLATELET COUNT 219 x10^3/uL (130-400); RED BLOOD COUNT 4.92 x10^6/uL (3.82-5.3); RED CELL DISTRIBUTION WIDTH 14.4 % (9.6-15.2)
[2019-10-25 19:28] LABS: ALANINE AMINOTRANSFERASE 108 U/L (12-78); ALBUMIN 3.7 g/dL (3.4-5.0); ANION GAP 6 mmol/L (5-15); CALCIUM 8.9 mg/dL (8.5-10.1); CHLORIDE 108 mmol/L (98-107)
[2019-10-25 19:31] LABS: ALKALINE PHOSPHATASE 79 U/L (45-117); BILIRUBIN,TOTAL 0.2 mg/dL (0.2-1.0); TOTAL PROTEIN 7.6 g/dL (6.4-8.2)
[2019-10-25] MEDS ORDERED: DIVALPROEX 500 MG TAB.ER.24H PO ONE (20:00)
[2019-10-25] MEDS ORDERED: DIVALPROEX 500 MG TAB.ER.24H ONE (20:14)
[2019-10-25 21:06] VITALS: BP 146/82
== END 2019-10-25 21:09 | disposition home or self-care (01) ==
LOC: ED 19:41
DX: R56.9 Unspecified convulsions (principal); Z98.51 Tubal ligation status
CPT/HCPCS: 36415; 80053; 80164; 85025; 93005; 99284

== ENCOUNTER 2019-11-26 19:59 | Emergency (ER) | payer MEDICARE, MEDICAID ==
[~2019-11-26] VITALS: Ht 152.4 cm; Wt 63.0 kg
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
--- NOTE | 2019-11-26 21:48 | NUR ---
Patient reports the fall happened in [place]. [place] PD and [place] [employer] in room.
[2019-11-26 22:10] VITALS: BP 149/84
--- NOTE | 2019-11-26 22:11 | NUR ---
Discharge instructions given. All questions and concerns addressed. Patient ambulatory with a steady gait. Belongings with patient.
== END 2019-11-26 22:26 | disposition home or self-care (01) ==
LOC: ED 21:28
DX: S00.83XA Contusion of other part of head, initial encounter (principal); S00.12XA Contusion of left eyelid and periocular area, initial encounter; S80.212A Abrasion, left knee, initial encounter; Y08.89XA Assault by other specified means, initial encounter; Y93.89 Activity, other specified; Y92.89 Other specified places as the place of occurrence of the external cause; Y99.8 Other external cause status
CPT/HCPCS: 70450; 70486; 99284

== ENCOUNTER 2019-12-20 18:03 | Emergency (ER) | payer MEDICARE, MEDICAID ==
[~2019-12-20] VITALS: Ht 152.4 cm; Wt 67.3 kg
[2019-12-20 18:41] VITALS: BP 144/83
[2019-12-20] MEDS ORDERED: IBUPROFEN 200 MG TABLET ONE (18:56)
[2019-12-20] MEDS ORDERED: IBUPROFEN 600 MG TABLET PO ONE (19:00)
== END 2019-12-20 19:39 ==
LOC: ED 19:33
DX: J02.8 Acute pharyngitis due to other specified organisms (principal); B97.89 Other viral agents as the cause of diseases classified elsewhere; E03.9 Hypothyroidism, unspecified; G40.909 Epilepsy, unspecified, not intractable, without status epilepticus; Z86.39 Personal history of other endocrine, nutritional and metabolic disease
CPT/HCPCS: 87081; 87880; 99283

== ENCOUNTER 2019-12-26 17:10 | Emergency (ER) | payer MEDICARE, MEDICAID ==
[~2019-12-26] VITALS: Ht 154.9 cm; Wt 65.0 kg
--- NOTE | 2019-12-26 17:15 | NUR ---
PATIENT BROUGHT IN BY [facility] FROM [facility]HOME FOR CHIEF COMPLAINT OF "STOMACH ACHE & HEAD ACHE" AFTER TAKING 1 BCAA PILL. DENIES CP, N/V, SOB, RECENT TRAUMA. Addendum: 12/26/19 at 1719 by [email or web address] PATIENT BROUGHT IN BY [facility] FROM [facility]HOME FOR CHIEF COMPLAINT OF "STOMACH ACHE & HEAD ACHE" AFTER TAKING 1 BCAA PILL. DENIES CP, N/V, SOB, RECENT TRAUMA. REPORTS SOME LOOSE STOOL YESTERDAY.
[2019-12-26] MEDS ORDERED: MAALOX/HYOSCYAMINE/LIDOCAINE 45 ML BTL PO ONE (18:00)
[2019-12-26] MEDS ORDERED: MAALOX/HYOSCYAMINE/LIDOCAINE 45 ML BTL ONE (18:05)
[2019-12-26 18:27] VITALS: BP 168/93
--- NOTE | 2019-12-26 18:28 | NUR ---
AMBULATION TO BATHROOM, UNABLE TO PROVIDE URINE SAMPLE AT THIS TIME.
--- NOTE | 2019-12-26 18:32 | NUR ---
PT TO IMAGING
[2019-12-26 18:45] LABS: BASOPHILS # (AUTO) 0.02 x10^3/uL (0-0.1); BASOPHILS % (AUTO) 0 % (0-1); EOSINOPHILS % (AUTO) 2 % (1-7); LYMPHOCYTES # (AUTO) 1.44 x10^3/uL (1-3.4); LYMPHOCYTES % (AUTO) 23 % (22-44); MD NO; MEAN CORPUSCULAR HGB CONC 33.8 g/dL (32.4-35.8); MEAN CORPUSCULAR VOLUME 91.7 fL (80-100); MEAN PLATELET VOLUME 10.1 fL (7.4-10.4); MONOCYTES # (AUTO) 0.52 x10^3/uL (0.2-0.8); MONOCYTES % (AUTO) 9 % (2-9); NEUTROPHILS # (AUTO) 4.07 x10^3/uL (1.8-6.8); NEUTROPHILS % (AUTO) 66 % (42-75); PLATELET COUNT 189 x10^3/uL (130-400); RED BLOOD COUNT 5.03 x10^6/uL (3.82-5.3); RED CELL DISTRIBUTION WIDTH 13.9 % (9.6-15.2)
--- NOTE | 2019-12-26 18:49 | NUR ---
REPORT FROM ANDREW DIANE. ASSUMING CARE OF PT AT THIS TIME. PT BACK FROM IMAGING.
[2019-12-26 18:54] LABS: ALANINE AMINOTRANSFERASE 56 U/L (12-78); ALBUMIN 3.6 g/dL (3.4-5.0); ANION GAP 5 mmol/L (5-15); CALCIUM 8.6 mg/dL (8.5-10.1); CHLORIDE 106 mmol/L (98-107); CREATININE 0.57 mg/dL (0.55-1.02)
[2019-12-26 18:59] LABS: ALKALINE PHOSPHATASE 62 U/L (45-117); BILIRUBIN,TOTAL 0.2 mg/dL (0.2-1.0); TOTAL PROTEIN 7.7 g/dL (6.4-8.2)
--- NOTE | 2019-12-26 19:08 | NUR ---
ALL RESULTS BACK AT THIS TIME CHART UP FOR RECHECK
[2019-12-26] MEDS ORDERED: ACETAMINOPHEN 325 MG TABLET ONE (19:15)
--- NOTE | 2019-12-26 19:16 | NUR ---
PT C/O BAKER. ERP UPDATED, ADDITIONAL ORDERS RECIEVED.
--- NOTE | 2019-12-26 19:37 | NUR ---
PT UP TO RESTROOM FOR URINE SAMPLE AT THIS TIME. STEADY GAIT NO ASSIST REQUIRED
--- NOTE | 2019-12-26 19:54 | NUR ---
PT REQ SPRITE, PT PROVIDED WITH SPRITE EDUCATED ON SMALL SIPS
--- NOTE | 2019-12-26 20:00 | NUR ---
URINE SENT TO LAB
[2019-12-26 20:09] LABS: CULTURE INDICATED? YES; MICROSCOPIC INDICATED
--- NOTE | 2019-12-26 20:18 | NUR ---
ALL RESULTS BACK AT THIS TIME CHART UP FOR RECHECK
[2019-12-26] MEDS ORDERED: ACETAMINOPHEN 325 MG TABLET PO ONE (21:00)
== END 2019-12-26 21:05 | disposition home or self-care (01) ==
LOC: ED 19:10
DX: N39.0 Urinary tract infection, site not specified (principal); R10.13 Epigastric pain; R51 Headache; R10.30 Lower abdominal pain, unspecified; E03.9 Hypothyroidism, unspecified; G40.909 Epilepsy, unspecified, not intractable, without status epilepticus; Z88.0 Allergy status to penicillin
CPT/HCPCS: 36415; 74022; 80053; 81001; 83690; 84703; 85025; 87086; 99284

== ENCOUNTER 2020-01-01 18:48 | Emergency (ER) | payer MEDICARE, MEDICAID ==
[~2020-01-01] VITALS: Ht 152.4 cm; Wt 66.9 kg
[2020-01-01 18:50] VITALS: BP 140/98
== END 2020-01-01 19:31 | disposition home or self-care (01) ==
LOC: ED 19:15
DX: R21 Rash and other nonspecific skin eruption (principal); E03.9 Hypothyroidism, unspecified; G40.909 Epilepsy, unspecified, not intractable, without status epilepticus; F32.9 Major depressive disorder, single episode, unspecified; Z98.51 Tubal ligation status
CPT/HCPCS: 99283

== ENCOUNTER 2020-02-11 14:31 | Emergency (ER) | payer MEDICARE, MEDICAID ==
[~2020-02-11] VITALS: Ht 154.9 cm; Wt 68.5 kg
[2020-02-11] MEDS ORDERED: ONDANSETRON ODT 4 MG PO ONE (15:00)
[2020-02-11] MEDS ORDERED: ONDANSETRON ODT 4 MG ONE (15:15)
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
[2020-02-11 15:33] LABS: BASOPHILS # (AUTO) 0.01 x10^3/uL (0-0.1); BASOPHILS % (AUTO) 0 % (0-1); EOSINOPHILS # (AUTO) 0.13 x10^3/uL (0-0.4); EOSINOPHILS % (AUTO) 3 % (1-7); LYMPHOCYTES # (AUTO) 1.15 x10^3/uL (1-3.4); LYMPHOCYTES % (AUTO) 26 % (22-44); MD NO; MEAN CORPUSCULAR HEMOGLOBIN 30.9 pg (27.0-34.8); MEAN CORPUSCULAR HGB CONC 33.8 g/dL (32.4-35.8); MEAN CORPUSCULAR VOLUME 91.4 fL (80-100); MEAN PLATELET VOLUME 11.1 fL (7.4-10.4); MONOCYTES # (AUTO) 0.72 x10^3/uL (0.2-0.8); MONOCYTES % (AUTO) 16 % (2-9); NEUTROPHILS # (AUTO) 2.47 x10^3/uL (1.8-6.8); NEUTROPHILS % (AUTO) 55 % (42-75); PLATELET COUNT 165 x10^3/uL (130-400); RED BLOOD COUNT 5.12 x10^6/uL (3.82-5.3); RED CELL DISTRIBUTION WIDTH 14.3 % (9.6-15.2)
[2020-02-11 15:44] LABS: ALANINE AMINOTRANSFERASE 29 U/L (12-78); ALBUMIN 3.6 g/dL (3.4-5.0); ANION GAP 5 mmol/L (5-15); CALCIUM 9.2 mg/dL (8.5-10.1); CHLORIDE 107 mmol/L (98-107); CREATININE 0.71 mg/dL (0.55-1.02)
[2020-02-11 15:46] LABS: ALKALINE PHOSPHATASE 47 U/L (45-117); BILIRUBIN,TOTAL 0.3 mg/dL (0.2-1.0); TOTAL PROTEIN 7.4 g/dL (6.4-8.2)
[2020-02-11 15:48] VITALS: BP 127/84
--- NOTE | 2020-02-11 15:49 | NUR ---
PT RESTING IN [facility]. PT REPORTS NAUSEA IMPROVEMENT
== END 2020-02-11 16:27 | disposition home or self-care (01) ==
LOC: ED 16:06
DX: R19.7 Diarrhea, unspecified (principal); R10.30 Lower abdominal pain, unspecified
CPT/HCPCS: 36415; 74022; 80053; 83690; 85025; 99284; Q0162

== ENCOUNTER 2020-03-25 22:46 | Emergency (ER) | payer MEDICARE, MEDICAID ==
[~2020-03-25] VITALS: Ht 152.4 cm; Wt 77.0 kg
[2020-03-25 22:48] VITALS: BP 163/103
[2020-03-25 23:25] LABS: HCG UR SG 1.015 (1.003-1.030); MICROSCOPIC AUTO
[2020-03-25 23:51] LABS: BASOPHILS # (AUTO) 0.02 x10^3/uL (0-0.1); BASOPHILS % (AUTO) 0 % (0-1); EOSINOPHILS # (AUTO) 0.27 x10^3/uL (0-0.4); EOSINOPHILS % (AUTO) 4 % (1-7); LYMPHOCYTES # (AUTO) 2.31 x10^3/uL (1-3.4); LYMPHOCYTES % (AUTO) 33 % (22-44); MD NO; MEAN CORPUSCULAR HGB CONC 33.5 g/dL (32.4-35.8); MEAN CORPUSCULAR VOLUME 92.5 fL (80-100); MEAN PLATELET VOLUME 12.5 fL (7.4-10.4); MONOCYTES # (AUTO) 0.65 x10^3/uL (0.2-0.8); MONOCYTES % (AUTO) 9 % (2-9); NEUTROPHILS # (AUTO) 3.66 x10^3/uL (1.8-6.8); NEUTROPHILS % (AUTO) 53 % (42-75); PLATELET COUNT 154 x10^3/uL (130-400); RED BLOOD COUNT 4.82 x10^6/uL (3.82-5.3); RED CELL DISTRIBUTION WIDTH 14.1 % (9.6-15.2)
[2020-03-25 23:57] LABS: ALBUMIN 3.6 g/dL (3.4-5.0); ANION GAP 7 mmol/L (5-15); CALCIUM 8.8 mg/dL (8.5-10.1); CHLORIDE 105 mmol/L (98-107)
[2020-03-26 00:01] LABS: ALANINE AMINOTRANSFERASE 28 U/L (12-78); ALKALINE PHOSPHATASE 71 U/L (45-117); BILIRUBIN,TOTAL 0.3 mg/dL (0.2-1.0); CREATININE 0.69 mg/dL (0.55-1.02); TOTAL PROTEIN 7.4 g/dL (6.4-8.2)
[2020-04-13] MEDS ORDERED: AMLO-150 PO (15:56)
[2020-04-13] MEDS ORDERED: FLUO10CA14 PO (15:56)
[2020-04-13] MEDS ORDERED: LEVE500T53 PO ×2 (15:56)
[2020-04-13] MEDS ORDERED: LEVO100T PO (15:56)
== END 2020-03-26 00:41 | disposition home or self-care (01) ==
LOC: ED 03-26 00:04
DX: R10.32 Left lower quadrant pain (principal); R19.7 Diarrhea, unspecified; G43.909 Migraine, unspecified, not intractable, without status migrainosus; E03.9 Hypothyroidism, unspecified; G40.909 Epilepsy, unspecified, not intractable, without status epilepticus
CPT/HCPCS: 36415; 80053; 81001; 81025; 83690; 85025; 99283

== ENCOUNTER 2020-04-07 17:48 | Emergency (ER) | payer MEDICARE ==
[~2020-04-07] VITALS: Ht 154.9 cm; Wt 70.0 kg
--- NOTE | 2020-04-07 18:29 | NUR ---
CORING MACHINE OPERATOR: PT TO ROOM FROM LOBBY VIA W/C
[2020-04-07 18:42] VITALS: BP 151/98
== END 2020-04-07 20:49 | disposition home or self-care (01) ==
LOC: ED 20:12
DX: S20.212A Contusion of left front wall of thorax, initial encounter (principal); S80.01XA Contusion of right knee, initial encounter; E03.9 Hypothyroidism, unspecified; W06.XXXA Fall from bed, initial encounter; Y93.89 Activity, other specified; Y92.89 Other specified places as the place of occurrence of the external cause; Y99.8 Other external cause status
CPT/HCPCS: 99284

== ENCOUNTER 2020-04-09 21:02 | Emergency (ER) | payer MEDICARE, MEDICAID ==
[~2020-04-09] VITALS: Ht 165.1 cm; Wt 130.0 kg
--- NOTE | 2020-04-09 21:30 | NUR ---
q15 min checks initiated by this RN. see paper chart.
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
--- NOTE | 2020-04-09 21:41 | NUR ---
sitter request placed
[2020-04-09 21:48] LABS: BASOPHILS # (AUTO) 0.02 x10^3/uL (0-0.1); BASOPHILS % (AUTO) 0 % (0-1); EOSINOPHILS # (AUTO) 0.27 x10^3/uL (0-0.4); EOSINOPHILS % (AUTO) 4 % (1-7); LYMPHOCYTES # (AUTO) 2.21 x10^3/uL (1-3.4); LYMPHOCYTES % (AUTO) 30 % (22-44); MD NO; MEAN CORPUSCULAR HEMOGLOBIN 31.4 pg (27.0-34.8); MEAN CORPUSCULAR HGB CONC 33.9 g/dL (32.4-35.8); MEAN CORPUSCULAR VOLUME 92.6 fL (80-100); MEAN PLATELET VOLUME 10.5 fL (7.4-10.4); MONOCYTES # (AUTO) 0.64 x10^3/uL (0.2-0.8); MONOCYTES % (AUTO) 9 % (2-9); NEUTROPHILS # (AUTO) 4.21 x10^3/uL (1.8-6.8); NEUTROPHILS % (AUTO) 57 % (42-75); PLATELET COUNT 189 x10^3/uL (130-400); RED CELL DISTRIBUTION WIDTH 14.4 % (9.6-15.2)
[2020-04-09 21:54] LABS: AMPHETAMINE SCREEN, URINE Negative (Negative); BARBITURATE SCREEN, URINE Negative (Negative); BENZODIAZEPINE SCREEN, URINE Negative (Negative); CANNABINOID SCREEN, URINE Negative (Negative); COCAINE SCREEN, URINE Negative (Negative); METHADONE SCREEN, URINE Negative (Negative); OPIATE SCREEN, URINE Negative (Negative)
[2020-04-09 22:01] LABS: ALBUMIN 3.8 g/dL (3.4-5.0); ANION GAP 7 mmol/L (5-15); CALCIUM 8.8 mg/dL (8.5-10.1); CHLORIDE 107 mmol/L (98-107); CREATININE 0.63 mg/dL (0.55-1.02); SALICYLATE LEVEL 2.1 mg/dL (2.8-20.0)
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
--- NOTE | 2020-04-09 23:11 | NUR ---
sitter at doorway for frequent checks
[2020-04-10 01:22] VITALS: BP 155/95
--- NOTE | 2020-04-10 01:22 | NUR ---
report to geovany jimenez
== END 2020-04-10 01:37 ==
LOC: ED 21:41
DX: R45.851 Suicidal ideations (principal); F32.9 Major depressive disorder, single episode, unspecified; G40.909 Epilepsy, unspecified, not intractable, without status epilepticus
CPT/HCPCS: 36415; 80048; 80307; 82040; 84702; 84703; 85025; 99285

== ENCOUNTER 2020-06-10 18:39 | Emergency (ER) | payer MEDICARE, MEDICAID ==
[~2020-06-10] VITALS: Ht 152.4 cm; Wt 73.1 kg
[~2020-06-10 18:39] MED LIST changes: +AMLO-150 PO; +FLUO10CA14 PO
--- NOTE | 2020-06-10 19:55 | NUR ---
PT RESTING COMFORTABLY IN [facility] AT THIS TIME; PEPE. PT HAS CALL LIGHT WITHIN REACH AND VERBALIZES UNDERSTANDING OF ER PROCESS.
--- NOTE | 2020-06-10 20:36 | NUR ---
PT D/C WITH D/C SUMMARY AND TAXI VOUCHER HOME TO [facility]. PT VERBALIZES UNDERSTANDING OF F/U INSTRUCTIONS. ALL QUESTIONS ANSWERED. PT AMBULATES TO REGISTRATION DESK WITH STEADY GAIT FOR D/C HOME AND DENIES ANY OTHER NEEDS PERTAINING TO THIS VISIT.
[2020-06-10 20:37] VITALS: BP 158/87
== END 2020-06-10 20:44 | disposition home or self-care (01) ==
LOC: ED 20:30
DX: R10.10 Upper abdominal pain, unspecified (principal); E03.9 Hypothyroidism, unspecified; G40.909 Epilepsy, unspecified, not intractable, without status epilepticus; Y04.8XXA Assault by other bodily force, initial encounter; Y93.89 Activity, other specified; Y92.098 Other place in other non-institutional residence as the place of occurrence of the external cause; Y99.8 Other external cause status
CPT/HCPCS: 99283

== ENCOUNTER 2020-07-13 20:05 | Emergency (ER) | payer MEDICARE, MEDICAID ==
[~2020-07-13] VITALS: Ht 152.4 cm; Wt 68.0 kg
[2020-07-13 20:07] VITALS: BP 162/105
--- NOTE | 2020-07-13 20:21 | NUR ---
BIB EMS FROM HOME FOR PAIN AND SWELLING TO RIGHT KNEE. HX ARTHRITIS, STATES "IT'S BEEN A REAL BAD FLARE UP FOR THE PAST FEW DAYS". TENDER TO PLAPTION, PAIN WITH MOVMENT. DENIES TRAUMA. VSS IN TRIAGE, A&OX4, CALL LIGHT IN REACH.
--- NOTE | 2020-07-13 21:11 | NUR ---
KNEE IMMOBILIZER PLACED, PATIENT TOLERATED WELL. NO NOTE ADDITIONAL QUESTIONS. PATIENT DENIES ANY CONCERNS.
[2020-07-13] MEDS ORDERED: IBUPROFEN 600 MG TABLET ONE (21:13)
[2020-07-13] MEDS ORDERED: IBUPROFEN 600 MG TABLET PO ONE (21:30)
== END 2020-07-13 21:22 | disposition home or self-care (01) ==
LOC: ED 21:00
DX: M17.11 Unilateral primary osteoarthritis, right knee (principal)
CPT/HCPCS: 29505; 99283

== ENCOUNTER 2020-07-21 16:49 | Emergency (ER) | payer MEDICARE, MEDICAID ==
[~2020-07-21] VITALS: Ht 152.4 cm; Wt 63.0 kg
[2020-07-21 17:09] VITALS: BP 161/104
--- NOTE | 2020-07-21 18:22 | NUR ---
PT SKILLED: PT TO ROOM FROM LOBBY VIA WHEELCHAIR
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
--- NOTE | 2020-07-21 18:33 | NUR ---
BEDSIDE REPORT TO ROXI DOBBINS
[2020-07-21] MEDS ORDERED: KETOROLAC 30 MG/1 ML IM ONE (19:00)
[2020-07-21] MEDS ORDERED: KETOROLAC 30 MG/1 ML ONE (19:03)
--- NOTE | 2020-07-21 19:12 | NUR ---
HARSHA ORDERED FROM [facility]
== END 2020-07-21 20:01 | disposition home or self-care (01) ==
LOC: ED 19:03
DX: M17.9 Osteoarthritis of knee, unspecified (principal); E03.9 Hypothyroidism, unspecified; W01.0XXA Fall on same level from slipping, tripping and stumbling without subsequent striking against object, initial encounter; Y93.01 Activity, walking, marching and hiking; Y92.89 Other specified places as the place of occurrence of the external cause; Y99.8 Other external cause status
CPT/HCPCS: 73564; 96372; 99283; J1885

== ENCOUNTER 2021-01-04 19:07 | Emergency (ER) | payer MEDICARE, MEDICAID ==
[~2021-01-04] VITALS: Ht 152.4 cm; Wt 70.0 kg
[~2021-01-04 19:07] MED LIST changes: -FLUO10CA14 PO; +FLUO10CA15 PO
[2021-01-04 21:18] LABS: BASOPHILS % (AUTO) 1 % (0-1); EOSINOPHILS % (AUTO) 2 % (1-7); LYMPHOCYTES % (AUTO) 27 % (22-44); MEAN CORPUSCULAR HEMOGLOBIN 31.1 pg (27.0-34.8); MEAN CORPUSCULAR HGB CONC 34.3 g/dL (32.4-35.8); MEAN PLATELET VOLUME 11.3 fL (7.4-10.4); MONOCYTES % (AUTO) 12 % (2-9); NEUTROPHILS % (AUTO) 58 % (42-75); PLATELET COUNT 152 x10^3/uL (130-400); RED BLOOD COUNT 4.89 x10^6/uL (3.82-5.3); RED CELL DISTRIBUTION WIDTH 13.8 % (9.6-15.2)
[2021-01-04 21:23] LABS: MD NO
[2021-01-04 21:31] LABS: CHLORIDE 107 mmol/L (98-107)
--- NOTE | 2021-01-04 21:37 | NUR ---
Pt to ER today with compaints of getting anxious and having abd pain. Pt states she has a known ulcer. Pt states today the pain in abd has become worse. Pt states she is out of her anxiety meds. Pt A&O, on monitor. IV placed. Waiting CT. Urine sent. Family at bedside.
[2021-01-04 21:41] LABS: ALANINE AMINOTRANSFERASE 50 U/L (12-78); ALBUMIN 3.6 g/dL (3.4-5.0); ALKALINE PHOSPHATASE 61 U/L (45-117); ANION GAP 8 mmol/L (5-15); BILIRUBIN,TOTAL 0.2 mg/dL (0.2-1.0); CALCIUM 9.2 mg/dL (8.5-10.1); CREATININE 0.63 mg/dL (0.55-1.02); TOTAL PROTEIN 7.2 g/dL (6.4-8.2)
[2021-01-04 21:50] LABS: MICROSCOPIC AUTO
[2021-01-04] MEDS ORDERED: OMNIPAQUE 350 MG/ML, 100ML BOTTLE ONE (22:08)
[2021-01-04 22:39] LABS: MICROSCOPIC NOT IND
--- NOTE | 2021-01-04 23:10 | NUR ---
Pt calm in bed. No changes. VSS. at bedside. Will monitor.
[2021-01-05] VITALS: BP 147/80
--- NOTE | 2021-01-05 00:01 | NUR ---
Patient/Caregiver given discharge instructions and they have confirmed that they understand the instructions. Patient ambulatory with steady gait.
== END 2021-01-05 00:03 | disposition home or self-care (01) ==
LOC: ED 19:37
DX: K59.00 Constipation, unspecified (principal); R10.32 Left lower quadrant pain; R10.12 Left upper quadrant pain; F41.9 Anxiety disorder, unspecified; R94.31 Abnormal electrocardiogram [ECG] [EKG]; E03.9 Hypothyroidism, unspecified; G40.909 Epilepsy, unspecified, not intractable, without status epilepticus
CPT/HCPCS: 36415; 74177; 80053; 81001; 81003; 83690; 84703; 85025; 87086; 93005; 99285; Q9967

== ENCOUNTER 2021-02-08 18:00 | Emergency (ER) | payer MEDICARE, MEDICAID ==
[~2021-02-08] VITALS: Ht 152.4 cm; Wt 74.0 kg
--- NOTE | 2021-02-08 19:17 | NUR ---
PT AMB TO ROOM AT THIS TIME STEADY GAIT.
--- NOTE | 2021-02-08 19:50 | NUR ---
PT TO IMAGING
[2021-02-08 20:53] VITALS: BP 166/93
--- NOTE | 2021-02-08 20:54 | NUR ---
Patient/Caregiver given discharge instructions and they have confirmed that they understand the instructions. Patient ambulatory with steady gait.
== END 2021-02-08 20:58 | disposition home or self-care (01) ==
LOC: ED 19:37
DX: S40.011A Contusion of right shoulder, initial encounter (principal); M25.521 Pain in right elbow; E11.9 Type 2 diabetes mellitus without complications; Z86.39 Personal history of other endocrine, nutritional and metabolic disease; W18.30XA Fall on same level, unspecified, initial encounter; Y93.89 Activity, other specified; Y92.410 Unspecified street and highway as the place of occurrence of the external cause; Y99.8 Other external cause status
CPT/HCPCS: 99284

== ENCOUNTER 2021-03-05 21:09 | Emergency (ER) | payer MEDICARE, MEDICAID ==
[~2021-03-05] VITALS: Ht 152.4 cm; Wt 75.6 kg
[2021-03-05] MEDS ORDERED: SODIUM CHLORIDE FLUSH 10ML SYR IVF ONE (22:30)
--- NOTE | 2021-03-05 22:48 | NUR ---
PT C/O LLQ PAIN STARTED YESTERDAY, DIARRHEA STARTED TODAY. [facility] FOR ABD PA[facility]. PT C/O LEFT EAR PAIN/RINGING. PT CONNECTED TO MONITORING. CALL LIGHT IN REACH. MARKETING ANALYTICS ANALYST AT BEDSIDE. PIV PLACEMENT ATTEMPTED X1, ERNP OK TO HOLD ON PIV AT THIS TIME. WARM BLANKET PROVIDED.
[2021-03-05 22:50] VITALS: BP 100/67
[2021-03-05 22:54] LABS: BASOPHILS % (AUTO) 1 % (0-1); EOSINOPHILS % (AUTO) 2 % (1-7); LYMPHOCYTES % (AUTO) 22 % (22-44); MEAN CORPUSCULAR HEMOGLOBIN 30.5 pg (27.0-34.8); MEAN CORPUSCULAR HGB CONC 34.3 g/dL (32.4-35.8); MEAN PLATELET VOLUME 11.5 fL (7.4-10.4); MONOCYTES % (AUTO) 8 % (2-9); NEUTROPHILS % (AUTO) 68 % (42-75); PLATELET COUNT 185 x10^3/uL (130-400); RED CELL DISTRIBUTION WIDTH 14.3 % (9.6-15.2)
[2021-03-05 22:55] LABS: MD NO
--- NOTE | 2021-03-05 22:58 | NUR ---
REPORT GIVEN TO ARLEY DIANE.
[2021-03-05 23:06] LABS: ALANINE AMINOTRANSFERASE 31 U/L (12-78); ALBUMIN 3.8 g/dL (3.4-5.0); ANION GAP 6 mmol/L (5-15); CALCIUM 9.2 mg/dL (8.5-10.1); CHLORIDE 107 mmol/L (98-107); CREATININE 0.56 mg/dL (0.55-1.02)
[2021-03-05 23:09] LABS: ALKALINE PHOSPHATASE 55 U/L (45-117); BILIRUBIN,TOTAL 0.3 mg/dL (0.2-1.0); TOTAL PROTEIN 7.5 g/dL (6.4-8.2)
[2021-03-06 00:29] LABS: MICROSCOPIC AUTO
== END 2021-03-06 01:43 | disposition home or self-care (01) ==
LOC: ED 22:39
DX: J30.2 Other seasonal allergic rhinitis (principal); R10.84 Generalized abdominal pain; R19.7 Diarrhea, unspecified; E11.9 Type 2 diabetes mellitus without complications; E03.9 Hypothyroidism, unspecified; G40.909 Epilepsy, unspecified, not intractable, without status epilepticus
CPT/HCPCS: 36415; 80053; 81001; 83690; 85025; 87086; 99283

== ENCOUNTER 2021-03-12 11:35 | Emergency (ER) | payer MEDICARE, MEDICAID ==
[~2021-03-12] VITALS: Ht 152.4 cm; Wt 76.4 kg
--- NOTE | 2021-03-12 12:35 | NUR ---
PT CAME IN CO N[place] AND PAINFUL URINATION. PT WAS RECENTLY SEEN FOR THE SAME BUT SAYS IT ISNT GETTING BETTER. PT ACCOMPANIED BY FRIEND. UNABLE TO PROVIDE UA AT THIS TIME. BLANKET PROVIDED
[2021-03-12 13:04] LABS: BASOPHILS % (AUTO) 0 % (0-1); EOSINOPHILS % (AUTO) 2 % (1-7); LYMPHOCYTES % (AUTO) 8 % (22-44); MEAN CORPUSCULAR HEMOGLOBIN 30.4 pg (27.0-34.8); MEAN CORPUSCULAR HGB CONC 33.7 g/dL (32.4-35.8); MEAN PLATELET VOLUME 10.9 fL (7.4-10.4); MONOCYTES % (AUTO) 6 % (2-9); NEUTROPHILS % (AUTO) 84 % (42-75); PLATELET COUNT 174 x10^3/uL (130-400); RED BLOOD COUNT 5.35 x10^6/uL (3.82-5.3); RED CELL DISTRIBUTION WIDTH 13.9 % (9.6-15.2)
[2021-03-12 13:10] LABS: MD NO
[2021-03-12 13:12] VITALS: BP 137/88
[2021-03-12 13:16] LABS: ALANINE AMINOTRANSFERASE 31 U/L (12-78); ALBUMIN 3.9 g/dL (3.4-5.0); ANION GAP 5 mmol/L (5-15); CALCIUM 8.8 mg/dL (8.5-10.1); CHLORIDE 107 mmol/L (98-107); CREATININE 0.55 mg/dL (0.55-1.02)
[2021-03-12 13:21] LABS: ALKALINE PHOSPHATASE 55 U/L (45-117); BILIRUBIN,TOTAL 0.5 mg/dL (0.2-1.0); TOTAL PROTEIN 7.7 g/dL (6.4-8.2)
[2021-03-12 13:58] LABS: MICROSCOPIC NOT IND
== END 2021-03-12 15:38 | disposition home or self-care (01) ==
LOC: ED 12:58
DX: G89.29 Other chronic pain (principal); R10.84 Generalized abdominal pain; R30.0 Dysuria; R19.7 Diarrhea, unspecified; E11.9 Type 2 diabetes mellitus without complications; E03.9 Hypothyroidism, unspecified; G40.909 Epilepsy, unspecified, not intractable, without status epilepticus
CPT/HCPCS: 36415; 74021; 80053; 81003; 83690; 84703; 85025; 93005; 99285

== ENCOUNTER 2021-05-06 14:35 | Emergency (ER) | payer MEDICARE, MEDICAID ==
[~2021-05-06] VITALS: Ht 152.4 cm; Wt 65.0 kg
[2021-05-06 14:47] VITALS: BP 137/76
== END 2021-05-06 15:05 | disposition home or self-care (01) ==
LOC: ED 14:59
DX: J06.9 Acute upper respiratory infection, unspecified (principal); E11.9 Type 2 diabetes mellitus without complications; E03.9 Hypothyroidism, unspecified
CPT/HCPCS: 99281

== ENCOUNTER 2021-05-15 02:28 | Emergency (ER) | payer MEDICARE, MEDICAID ==
[2021-05-15 02:36] VITALS: BP 133/77
== END 2021-05-15 03:12 | disposition home or self-care (01) ==
LOC: ED 02:40
DX: E03.9 Hypothyroidism, unspecified (principal); Z76.0 Encounter for issue of repeat prescription; E11.9 Type 2 diabetes mellitus without complications; G40.909 Epilepsy, unspecified, not intractable, without status epilepticus
CPT/HCPCS: 99281

== ENCOUNTER 2021-05-21 12:28 | Emergency (ER) | payer MEDICARE, MEDICAID ==
[~2021-05-21] VITALS: Ht 152.4 cm; Wt 100.0 kg
[2021-05-21 12:36] VITALS: BP 136/93
--- NOTE | 2021-05-21 14:36 | NUR ---
Patient given discharge instructions and they have confirmed that they understand the instructions. Patient wheeled to dc desk by family.
== END 2021-05-21 14:48 | disposition home or self-care (01) ==
LOC: ED 13:11
DX: S00.532A Contusion of oral cavity, initial encounter (principal); I10 Essential (primary) hypertension; E03.9 Hypothyroidism, unspecified; X58.XXXA Exposure to other specified factors, initial encounter; Y93.89 Activity, other specified; Y92.89 Other specified places as the place of occurrence of the external cause; Y99.8 Other external cause status
CPT/HCPCS: 99281

== ENCOUNTER 2021-06-14 05:18 | Emergency (ER) | payer MEDICARE, MEDICAID ==
[~2021-06-14] VITALS: Ht 152.4 cm; Wt 67.0 kg
[2021-06-14 05:20] VITALS: BP 184/100
== END 2021-06-14 05:42 | disposition home or self-care (01) ==
LOC: ED 05:30
DX: R10.84 Generalized abdominal pain (principal); F41.1 Generalized anxiety disorder; R11.0 Nausea; I10 Essential (primary) hypertension; E11.9 Type 2 diabetes mellitus without complications; G40.909 Epilepsy, unspecified, not intractable, without status epilepticus; Z88.0 Allergy status to penicillin; Z86.39 Personal history of other endocrine, nutritional and metabolic disease
CPT/HCPCS: 99283

== ENCOUNTER 2021-07-11 14:08 | Emergency (ER) | payer MEDICARE, MEDICAID ==
[~2021-07-11] VITALS: Ht 152.4 cm; Wt 76.5 kg
--- NOTE | 2021-07-11 14:10 | NUR ---
PT NOT IN LOBBY AT THIS TIME.
[2021-07-11 14:13] VITALS: BP 125/86
--- NOTE | 2021-07-11 15:01 | NUR ---
CLAIM CLINICIAN: PT TO ROOM FROM DANIEL GREGORY
--- NOTE | 2021-07-11 15:21 | NUR ---
TANESHA Lr at bedside to discuss poc
--- NOTE | 2021-07-11 15:30 | NUR ---
PT EDUCATED ON DC INSTRUCTIONS, VERBALIZED UNDERSTANDING, AMBULATORY TO DC DESK WITH STEADY GAIT.
== END 2021-07-11 15:32 | disposition home or self-care (01) ==
LOC: ED 15:30
DX: G40.909 Epilepsy, unspecified, not intractable, without status epilepticus (principal); Z76.0 Encounter for issue of repeat prescription; I10 Essential (primary) hypertension; E11.9 Type 2 diabetes mellitus without complications; E03.9 Hypothyroidism, unspecified
CPT/HCPCS: 99281